=== PATIENT | female | born 1950 | race Caucasian/White ===

== ENCOUNTER → 2017-05-10 | Outpatient (CLI) | payer BC ==
[~2017-05-10] MED LIST: AMBI10TA PO; AMLO1TAB37 PO; DICL75TA PO; LOTR5CAP2 PO; NAPR220C22 PO
--- NOTE | 2017-05-12 23:41 | EKG ---
Date Performed: 05/10/2017 Time Performed: 11:54:05 PTAGE: 66 years EKG: Sinus rhythm POSSIBLE LEFT ATRIAL ENLARGEMENT MINIMAL ST DEPRESSION BORDERLINE ECG NO PREVIOUS TRACING DOCTOR: Osiel Lorenzo Interpretating Date/Time 05/12/2017 23:40:16
== END ==
LOC: CPRE 11:32
PROVIDERS: ATTEND Orthopaedic Surgery Orthopaedic Surgery of the Spine
DX: Z01.810 Encounter for preprocedural cardiovascular examination (principal); M16.12 Unilateral primary osteoarthritis, left hip; Z79.01 Long term (current) use of anticoagulants
CPT/HCPCS: 93005

== ENCOUNTER 2017-05-28 05:12 | Inpatient (IN) | payer BC ==
[~2017-05-28] VITALS: Ht 156.2 cm; Wt 63.4 kg
[~2017-05-28 05:12] MED LIST changes: -LOTR5CAP2 PO
[2017-05-28] MEDS ORDERED: METOPROLOL TARTRATE 25 MG TAB PO PRN (05:45)
[2017-05-28] MEDS ORDERED: CHLORHEXIDINE GLUCONATE 2 % 1 PACK (2 CLOTHS) TOPICAL PRN (05:45)
[2017-05-28] MEDS ORDERED: TRANEXAMIC ACID IV SCH (05:45)
[2017-05-28] MEDS ORDERED: VANCOMYCIN 1000 MG/NS 250 ML (for <70 kg) IV SCH ×2 (05:45)
[2017-05-28] MEDS ORDERED: LACTATED RINGER'S 1000 ML IV PRN (05:45)
[2017-05-28] MEDS ORDERED: EXPAREL PERI-ARTICULAR INJECTION (TOTAL VOL. 60 ML) P-ARTICULR SCH ×2 (05:45)
[2017-05-28] MEDS ORDERED: POVIDONE IODINE 7.5% SCRUB 118 ML BOTTLE TOPICAL SCH (05:45)
[2017-05-28] MEDS ORDERED: POVIDONE IODINE 5% (ANTISEPSIS KIT) 4 APPLICATIONS EACH NARE PRN (05:45)
[2017-05-28] MEDS ORDERED: SODIUM CHLORIDE 0.9% IV SCH (05:45)
[2017-05-28] MEDS ORDERED: SODIUM CHLORID 0.9% 500 ML IV PRN (05:45)
[2017-05-28] MEDS ORDERED: TYLE325T PO (06:09)
[2017-05-28] MEDS ORDERED: HYDR-3516 PO (06:09)
[2017-05-28] MEDS ORDERED: AMLO5CAP3 PO (06:09)
[2017-05-28] MEDS ORDERED: GENTAMICIN SULFATE 80 MG/2 ML VIAL ONE (06:21)
[2017-05-28] MEDS ORDERED: ceFAZolin INJ 1,000 MG VIAL ONE (07:20)
[2017-05-28] MEDS ORDERED: ZOLPIDEM TARTRATE 10 MG TAB PO PRN (09:15)
[2017-05-28] MEDS ORDERED: Post-op Orders (for Pharmacy) XX ONE (09:30)
[2017-05-28] MEDS ORDERED: MISCELLANEOUS NURSING INFORMATION XX PRN (09:30)
[2017-05-28] MEDS ORDERED: MISCELLANEOUS PHARMACY INFORMATION XX ONE (09:30)
[2017-05-28] MEDS ORDERED: NALOXONE HCL 0.4 MG/ML AMP IV PUSH PRN ×2 (09:30)
--- NOTE | 2017-05-28 09:31 | PD.OP ---
cc: Ted Walker MD Operative Report Date of Surgery: May 28, 2017 Preoperative Diagnosis: Osteoarthritis left hip Postoperative Diagnosis: Same Procedure: Left total hip replacement arthroplasty, direct anterior exposure Anesthesia: Gen. Surgeon: Ted Walker Naphthol Soaping Machine Operator(s): MICHOACANO Clemons Operation and Findings: EBL: 250 cc INDICATION: This patient presents with significant hip pain related to osteoarthritis of the left hip. Despite extensive conservative care this patient continues to be painful and now presents for surgical treatment. NOTE: Bernarda Clemons PA-C was present for the entire surgical procedure as my orthopedic assistant. In my medical opinion her skill and care was necessary for the proper management of this patient. COMPONENTS: COMPANY: [employer] CUP: [place], 50 mm, 100 series, gription surface LINER: Altrx 32 mm, neutral STEM: [place]ail, size 10, standard offset, hydroxyapatite-coated HEAD: Ceramic, 32 mm, +1, /14 taper PROCEDURE: This patient was brought to the operating room and anesthetized in the supine position and positioned on the fracture table with both legs held extended. The left hip and leg was scrubbed with alcohol followed by Hibiclens followed by ChloraPrep and draped sterilely. Antibiotics were given within routine time window and a timeout was done. A 4 inch incision was made starting 2 cm distal and 2 cm lateral to the anterior superior iliac spine. The fascia flaca was opened longitudinally. The interval between the fascia flaca and the rectus was opened down to the capsule of the hip joint. Retractors were positioned allowing good visualization of the capsule. This was opened longitudinally and flaps were created. Stay sutures were utilized. Exposure was excellent. The neck was cut at the proper location using fluoroscopy as a guide. The head was removed. Deep retractors were positioned allowing good visualization of the acetabulum. Acetabulum was deepened down to the floor starting with a proper size reamer and reaming up to 49 mm. A trial was utilized. Fluoroscopy was used to check position and confirmed satisfactory alignment. The rim was reamed with a 50 mm reamer and the final cup was positioned in approximately 20 of anteversion and 40-45 of abduction. Position was satisfactory. A single hole eliminator was positioned followed by the final liner. The lifting hook was utilized. The leg was dropped to the floor, maximally externally rotated and brought across the midline. Retractors were positioned. A box osteotome was utilized followed by progressive broaching to the proper stem size. Trial reduction showed excellent alignment and fit. With 60 of external rotation the leg was dropped to the floor without evidence of anterior subluxation. The wound was irrigated. The final stem was inserted and was found to be very stable. The final reduction using the final head. Stability was as previously noted. Intraoperative x-rays were taken. The wound was irrigated copiously. Hemostasis was controlled. Local anesthesia was utilized. The capsule was repaired with #2 Tycron sutures. The fascia flaca was repaired with running 0 PDS on a loop. Subcutaneous tissue was approximated with 2-0 Vicryl and skin with running intradermal 3-0 Vicryl followed by Steri-Strips. A sterile dressing was applied. The patient was awakened and taken to the recovery room in satisfactory condition. FINDINGS: There was moderate to severe osteoarthritis of the left hip. Circumferential osteophytes were removed. The final solution appeared to be excellent. No complication was appreciated. Ted Walker MD May 28, 2017 09:31
[2017-05-28] MEDS ORDERED: TRAM50 PO (09:32)
[2017-05-28] MEDS ORDERED: ASPI325T33 PO (09:32)
--- NOTE | 2017-05-28 09:38 | RADRPT ---
EXAM DATE/TIME: 05/28/2017 08:12 [facility] COMPARISON: No previous studies available for comparison. INDICATIONS : Left total hip replacement. MEDICAL HISTORY : None. SURGICAL HISTORY : None. ENCOUNTER: Initial ACUITY: 1 day PAIN SCORE: Non-responsive. LOCATION: Left Hip FINDINGS: A two view examination of the left hip was performed. The patient had a total hip arthroplasty in exc ellent position. There no palpitations.. CONCLUSION: Total hip arthroplasty in good position. Patrick Camacho MD on May 28, 2017 at 9:35 Board Certified Radiologist. This report was verified electronically.
[2017-05-28] MEDS ORDERED: DO NOT ADM ANY ANTICOAGULANT DRUGS PRN (09:45)
[2017-05-28] MEDS ORDERED: MIDAZOLAM HCL 2 MG/2 ML VIAL ONE (09:50)
[2017-05-28] MEDS ORDERED: MORPHINE SULFATE 4 MG/ML INJ ONE ×2 (09:51)
[2017-05-28] MEDS: LACTATED RINGER'S 1000 ML INJ 1,000 ML IV SCH ×3 (10:00→23:55)
[2017-05-28] MEDS ORDERED: HYDROmorphone HCL PCA 6 MG/30 ML IV SCH (10:30)
[2017-05-28] MEDS ORDERED: ceFAZolin 2 GM PREMIX 50 ML IV SCH (10:30)
[2017-05-28] MEDS ORDERED: ROCURONIUM INJ 50 MG/5 ML SYRINGE IV PUSH ONE (12:00)
[2017-05-28] MEDS ORDERED: CLINDAMYCIN INJ 600 MG in SODIUM CHLORIDE 0.9% INJ 100 ML IV SCH (12:00)
[2017-05-28] MEDS ORDERED: PROPOFOL 200 MG/20 ML AMP IV ONE (12:00)
[2017-05-28] MEDS ORDERED: LIDOCAINE HCL 1% PF 5 ML SYRINGE OTHER ONE (12:00)
[2017-05-28] MEDS ORDERED: LACTATED RINGER'S 1000 ML INJ 2,000 ML IV ONE (12:00)
[2017-05-28] MEDS ORDERED: PHENYLEPH/NS 1000 MCG/10 ML SYR IV ONE (12:00)
[2017-05-28] MEDS ORDERED: DEXAMETHASONE SOD PHOS 4 MG/ML VIAL IV ONE (12:00)
[2017-05-28] MEDS ORDERED: ONDANSETRON HCL 4 MG/2 ML VIAL IV PUSH ONE (12:00)
[2017-05-28] MEDS: PCA - TOTAL MG DILAUDID DELIVERED PER SHIFT OTHER SCH ×2 (13:38→22:00)
[2017-05-28] MEDS: CLINDAMYCIN INJ 600 MG in SODIUM CHLORIDE 0.9% INJ 100 ML IV SCH ×2 (14:00→19:40)
[2017-05-28] MEDS: traMADol HCL 50 MG TAB PO PRN ×3 (14:07→22:14)
[2017-05-28] MEDS ORDERED: SODIUM CHLORIDE 0.9% INJ 100 ML ONE (14:10)
[2017-05-28 16:00] VITALS: BP 111/85; PULSE 88; RESP 18; TEMP 98.9; O2SAT 92
[2017-05-28] MEDS: MAGNESIUM HYDROXIDE SUSP 30 ML CUP PO SCH (20:05)
[2017-05-28] MEDS: SENNOSIDES 8.6 MG TAB PO SCH (20:05)
[2017-05-28] MEDS: ASPIRIN EC 325 MG TABEC PO SCH (20:09)
[2017-05-28 20:30] VITALS: BP 131/84; PULSE 105; RESP 17; TEMP 99.1; O2SAT 95
[2017-05-29] VITALS (8 sets, daily range): BP systolic 111–153; BP diastolic 68–92; PULSE 78–112; RESP 17–18; TEMP 98.1–99.9; O2SAT 92–98
[2017-05-29] MEDS: CLINDAMYCIN INJ 600 MG in SODIUM CHLORIDE 0.9% INJ 100 ML IV SCH ×2 (01:59→07:35)
[2017-05-29] MEDS: traMADol HCL 50 MG TAB PO PRN ×6 (02:22→22:02)
[2017-05-29] MEDS: PCA - TOTAL MG DILAUDID DELIVERED PER SHIFT OTHER SCH (06:00)
[2017-05-29 06:51] LABS: REVIEW FLAG FINAL
[2017-05-29] MEDS: LISINOPRIL 20 MG TAB PO SCH ×2 (09:00→12:32)
[2017-05-29] MEDS ORDERED: NON-FORMULARY DRUG (Amlodipine-Benazepril 1 CAP) PO SCH (09:00)
[2017-05-29] MEDS: amLODIPine BESYLATE 5 MG TAB PO SCH ×2 (09:00→12:32)
[2017-05-29] MEDS: MAGNESIUM HYDROXIDE SUSP 30 ML CUP PO SCH ×2 (10:01→20:45)
[2017-05-29] MEDS: ASPIRIN EC 325 MG TABEC PO SCH ×2 (10:04→20:46)
[2017-05-29] MEDS: LACTATED RINGER'S 1000 ML INJ 1,000 ML IV SCH ×2 (11:00→23:30)
--- NOTE | 2017-05-29 13:20 | HHI.DCPOC ---
Discharge Care Plan Diagnosis: (1) Left hip pain (2) Osteoarthritis of left hip Your Health Problems Are: Difficulty with ADL Incision/Drains Swelling Goals to Promote Your Health * To prevent worsening of your condition and complications * To maintain your health at the optimal level Directions to Meet Your Goals Take your medications as prescribed Follow your dietary instruction Follow activity as directed Keep your appointments as scheduled Take your immunizations and boosters as scheduled If your symptoms worsen call your PCP, if no PCP go to Urgent Care Center or Emergency Room Smoking is Dangerous to Your Health. Avoid second hand smoke Call the 24-hour hour crisis hotline for domestic abuse at Kaley Valenzuela May 29, 2017 13:20
--- NOTE | 2017-05-29 13:21 | HHI.FF ---
Face to Face Verification Diagnosis: (1) Left hip pain (2) Osteoarthritis of left hip Physical Therapy Gait training, Safety evaluation, Transfer training, bed to chair Hip: Total hip, Protocol: Left, Progress to weight bearing Left LE Weight Bearing: WB as tolerated Additional Instructions PT 4 days/wk for 2 weeks. WBAT LLE. Anterior caleb precautions. Gait training. Nursing RN Days per Week: 2 x Week(s): 1 Dressing Changes: Do not change dressing Additional Instructions Vitals assessment. Dressing assessment - do not change unless saturated. Ok to shower pod#5 IF kept sealed and dry. I have seen patient Katie Pina on 05/29/17. My clinical findings support the need for the requested home health care services because: Limited ability to care for self High risk of falls I certify that my clinical findings support that this patient is homebound because: Post-op weakness Unsteady gait/balance Kaley Valenzuela May 29, 2017 13:21
--- NOTE | 2017-05-29 13:22 | HHI.DS ---
Discharge Summary Admission Date May 28, 2017 at 09:28 Discharge Date: May 30, 2017 Admitting Diagnosis see below Diagnosis: (1) Osteoarthritis of left hip Diagnosis: Principal ICD Codes: M16.12 - Unilateral primary osteoarthritis, left hip Procedures Left total hip arthroplasty, direct anterior approach Brief History This is a 66 year old female patient CBC/BMP: 05/29/17 0606 Significant Findings Laboratory Tests Test 05/29/17 06:06 Hemoglobin 10.4 GM/DL (11.6-15.3) Hematocrit 30.0 % (35.0-46.0) Pt Condition on Discharge: Stable Discharge Disposition: Disch w/ Home Health Serv Discharge Instructions Diet Instructions: As Tolerated, No Restrictions, High Fiber Diet Activities You Can Perform: Weight Bearing as Alvaro Activities to Avoid: Strenuous Activity Additional Activity Instruc.: ROBERTO precautions New Medications: Aspirin DR (Aspirin EC) 325 Mg Tabdr 81 MG PO BID for Prevent Blood Clot for 30 Days, #12 TAB Tramadol (Ultram) 50 Mg Tab 50 MG PO Q4H PRN for PAIN, #50 TAB Continued Medications: Acetaminophen (Tylenol) 325 Mg Tab 500 MG PO Q6H, TAB 0 Refills Amlodipine-Benazepril (Amlodipine-Benazepril) 5-20 Mg Cap 1 CAP PO DAILY for Blood Pressure Management, CAP 0 Refills Hydrocodone-Acetaminophen (Hydrocodone-Acetaminophen) 5-325 mg Tab 1 TAB PO Q6H PRN for PAIN, TAB 0 Refills Zolpidem (Ambien) 10 Mg Tab 10 MG PO HS PRN for INSOMNIA, TAB 0 Refills Kaley Valenzuela May 29, 2017 13:22
[2017-05-29] MEDS ORDERED: WALKER WHEELS/F1 MIS (13:23)
[2017-05-29] MEDS ORDERED: COMMODE 3-IN-11 MIS (13:23)
--- NOTE | 2017-05-29 13:26 | PD.ORT.PN ---
Subjective Subjective Remarks Moderate left hip pain. She denies any radiating leg pain below the knee. She had some nausea previously but is doing well now. Urinating readily. No complaints of CP or SOB. She has questions about surgery and discharge. Objective Vitals Vital Signs Date Time Temp Pulse Resp B/P (MAP) Pulse Ox O2 Delivery O2 Flow Rate FiO2 05/29/17 12:00 99.9 112 18 153/92 (112) 94 05/29/17 11:08 18 05/29/17 08:05 96 05/29/17 07:43 99.0 104 18 115/86 (96) 92 05/29/17 06:00 17 05/29/17 04:11 98.1 78 18 142/76 (98) 98 05/29/17 00:16 99.8 107 17 112/76 (88) 95 05/28/17 22:00 18 05/28/17 20:30 99.1 105 17 131/84 (100) 95 05/28/17 16:00 98.9 88 18 111/85 (94) 92 05/28/17 14:34 16 05/28/17 13:30 104 14 96/64 (75) 96 Nasal Cannula 2 I/O 05/28/17 05/28/17 05/28/17 05/29/17 05/29/17 05/29/17 07:00 15:00 23:00 07:00 15:00 23:00 Intake Total 1600 ml 1524 ml 699 ml Output Total 950 ml 250 ml 300 ml Balance 650 ml 1274 ml 399 ml Intake Oral 420 ml 360 ml IV Total 1600 ml 1104 ml 339 ml Output Urine Total 700 ml 250 ml 300 ml Estimated Blood Loss 250 ml # Bowel Movements 0 0 Result Diagram: 05/29/17 0606 Procedures Left total hip arthroplasty, direct anterior approach Objective Remarks Laying in bed at bedside NAD but anxious VSS LLE Dressing c/d/i, mild swelling and warmth, no erythema thigh supple, neg homans distal +motor at, +sens, +nvi Assessment & Plan Ortho Post Op Day #: 1 Problem List: (1) Osteoarthritis of left hip ICD Codes: M16.12 - Unilateral primary osteoarthritis, left hip Qualifiers: Qualified Codes: M16.12 - Unilateral primary osteoarthritis, left hip Assessment and Plan pod#1 s/p L ROBERTO, anterior Ortho stable. 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 Hold dressing changes unless saturated. PT - WBAT LLE. Anterior roberto precautions. ASA 325 mg 2 tabs daily. D/C planning, likely home a [facility] or sat. DME written. Kaley Valenzuela May 29, 2017 13:26
[2017-05-29] MEDS: SENNOSIDES 8.6 MG TAB PO SCH (20:45)
[2017-05-30] VITALS: BP 118/76; PULSE 105; RESP 18; TEMP 99.4; O2SAT 93
[2017-05-30] MEDS: traMADol HCL 50 MG TAB PO PRN ×4 (02:13→14:51)
[2017-05-30 08:00] VITALS: BP 113/73; PULSE 98; RESP 18; TEMP 98.2; O2SAT 94
[2017-05-30] MEDS: LISINOPRIL 20 MG TAB PO SCH (08:32)
[2017-05-30] MEDS: ASPIRIN EC 325 MG TABEC PO SCH (08:32)
[2017-05-30] MEDS: MAGNESIUM HYDROXIDE SUSP 30 ML CUP PO SCH (08:32)
[2017-05-30] MEDS: amLODIPine BESYLATE 5 MG TAB PO SCH (08:32)
--- NOTE | 2017-05-30 08:46 | PD.ORT.PN ---
Subjective Subjective Remarks She continues to have moderate left hip pain but its more tolerable. She was able to ambulate independently to restroom several times last night. She denies any radiating leg pain below the knee. Urinating readily. Had BM. No complaints of CP or SOB. Is unsure about discharge. Objective Vitals Vital Signs Date Time Temp Pulse Resp B/P (MAP) Pulse Ox O2 Delivery O2 Flow Rate FiO2 05/30/17 00:00 99.4 105 18 118/76 (90) 93 05/29/17 20:22 93 21 05/29/17 19:18 98.5 102 18 111/68 (82) 93 05/29/17 16:00 99.2 106 18 118/76 (90) 93 05/29/17 12:00 99.9 112 18 153/92 (112) 94 05/29/17 11:08 18 I/O 05/29/17 05/29/17 05/29/17 05/30/17 05/30/17 05/30/17 07:00 15:00 23:00 07:00 15:00 23:00 Intake Total 699 ml 600 ml 360 ml 280 ml Output Total 300 ml 380 ml Balance 399 ml 600 ml 360 ml -100 ml Intake Oral 360 ml 600 ml 360 ml 280 ml IV Total 339 ml Output Urine Total 300 ml 380 ml # Voids 3 3 # Bowel Movements 0 1 0 0 Result Diagram: 05/29/17 0606 Procedures Left total hip arthroplasty, direct anterior approach Objective Remarks Sitting up in bed NAD VSS LLE Dressing c/d/i, mild swelling and warmth, no erythema thigh supple, neg homans distal +motor at, +sens, +nvi Assessment & Plan Ortho Post Op Day #: 2 Problem List: (1) Osteoarthritis of left hip ICD Codes: M16.12 - Unilateral primary osteoarthritis, left hip Qualifiers: Qualified Codes: M16.12 - Unilateral primary osteoarthritis, left hip Assessment and Plan pod#2 s/p L ROBERTO, anterior Ortho stable. PO pain meds as needed. Hold dressing changes unless saturated. PT - WBAT LLE. Anterior roberto precautions. ASA 325 mg 2 tabs daily. She is medically stable for discharge home today. Of questions whether she excels in PT today. If she does well with PT, d/c home a [facility] this afternoon. DME written. F2F written. Kaley Valenzuela May 30, 2017 08:46
[2017-05-30 12:00] VITALS: BP 138/78; PULSE 97; RESP 18; TEMP 99; O2SAT 95
[2017-05-30] MEDS: LACTATED RINGER'S 1000 ML INJ 1,000 ML IV SCH (12:00)
== END 2017-05-30 15:24 | disposition home health service (06) | DRG 470 ==
LOC: HSDC 05:12 → HSDI 09:28 → EDSTATUS 11:00 → N06B 13:46
PROVIDERS: ADMIT Orthopaedic Surgery Orthopaedic Surgery of the Spine; ATTEND Orthopaedic Surgery Orthopaedic Surgery of the Spine
PROC: 0SRB04A Replacement of Left Hip Joint with Ceramic on Polyethylene Synthetic Substitute, Uncemented, Open Approach (ICD-10-PCS; principal; 2017-05-28 07:19)
DX: M16.12 Unilateral primary osteoarthritis, left hip (principal); R11.0 Nausea
CPT/HCPCS: 36415; 73502; 76000; 85014; 85018; 86850; 86900; 86901; 86920; 94150; C1776; C9290; J0690; J1100; J1170; J1580; J2250; J2270; J2370; J2405; J3010; J7120